=== PATIENT | female | born 1970 | race African-American/Black ===

== ENCOUNTER 2019-02-27 08:51 | Day surgery (SDC) | payer OTHER ==
[2019-02-27] VITALS (9 sets, daily range): BP systolic 130–170; BP diastolic 77–113
[~2019-02-27] VITALS: Ht 149.9 cm; Wt 69.9 kg
[~2019-02-27 08:51] MED LIST: LR 1000ml 1,000 ML IVLG SCH
--- NOTE | 2019-02-27 09:57 | Short Stay Surgery H&P ---
History of Present Illness History of Present Illness Chief Complaint Abdominal pains and GERDs. HPI Geneva Kang is a 48 year old female who was admitted on for GERD/ abdominal pain Patient History Allergies: Coded Allergies: No Known Allergies (Unverified , 02/26/19) PAST MEDICAL HISTORY: (1) Hyperlipidemia (2) Hypertension (3) Status post delivery (4) Status post cholecystectomy Review of Systems Cardiovascular: Reports: no symptoms, hypertension Respiratory: Reports: no symptoms Skeletal: Reports: trauma Gastrointestinal: Reports: gastro esophageal reflux disease Genitourinary: Reports: no symptoms Neurologic: Reports: no symptoms Endocrine: Reports: no symptoms Hematologic: Reports: no symptoms Physical Exam Skin: normal HENT: normal Heart: normal Lungs: normal Abdomen: abnormal Extremities: normal Genitourinary: normal Plan Plan of Care Upper GI. endoscopy and biopsy Preop Interventions None. Summary of Findings See the reports Attestation Are the patient's medical conditions optimized for surgery? Attestation Response: yes Lynn Vernon MD February 27, 2019 09:57
--- NOTE | 2019-02-27 09:59 | Pre-Procedure Note/Attestation ---
Pre-Procedure Note/Attestation Complete Prior to Procedure Planned Procedure: left Procedure Narrative: Examination of the upper GI.tract with biopsy. Indications for Procedure Pre-Operative Diagnosis: R/O gastritis/peptic ulcer Attestation I attest that I discussed the nature of the procedure; its benefits; risks and complications; and alternatives (and the risks and benefits of such alternatives ), prior to the procedure, with the patient (or the patient's legal patient care representative). I attest that, if there was a reasonable possibility of needing a blood transfusion, the patient (or the patient's legal patient care representative) was given the [facility] standardized written summary, pursuant to the [place] Blood Safety Act ([place] Health and Safety Code # 1645, as amended). I attest that I re-evaluated the patient just prior to the surgery and that there has been no change in the patient's H&P, except as documented below: Lynn Vernon MD February 27, 2019 09:59
[2019-02-27] MEDS ORDERED: Propofol 200mg/20ml IV ONE (10:30)
[2019-02-27] MEDS ORDERED: ZANTAC150 MG ORAL (10:40)
[2019-02-27] MEDS ORDERED: BP MED PO (10:40)
[2019-02-27] MEDS ORDERED: PAMELOR10 MG ORAL (10:40)
--- NOTE | 2019-02-27 10:49 | Anethesia Preoperative Eval ---
Anesthesia Pre-op PMH/ROS General Date of Evaluation: February 27, 2019 Time of Evaluation: 10:00 ASA Score: ASA 2 Mallampati Score Class I : Soft palate, uvula, fauces, pillars visible Class II: Soft palate, uvula, fauces visible Class III: Soft palate, base of uvula visible Class IV: Only hard plate visible Mallampati Classification: Class II Allergies: Coded Allergies: CEPHALEXIN (Verified Allergy, Severe, SWELLING, RASH , 02/27/19) LATEX (Verified Allergy, Severe, RASH , 02/27/19) PENICILLINS (Verified Adverse Reaction, Severe, 02/27/19) YEAST INFECTION Patient NPO?: Yes Anesthesia Pre-op Phys. Exam Physician Exam Last Vital Signs Date Time Temp Pulse Resp B/P (MAP) Pulse Ox O2 Delivery O2 Flow Rate FiO2 02/27/19 10:37 Room Air 02/27/19 10:24 97.4 82 18 153/97 98 Airway Exam Mallampati Score: Class II Anesthesia Pre-op A/P Labs Urine Test Test 02/27/19 10:30 Urine HCG, Qualitative Pending Alvaro Christy MD February 27, 2019 10:49
--- NOTE | 2019-02-27 10:52 | Endoscopy Procedure Note ---
Endoscopy Procedure Note General Indication for Procedure: Abdominal pains/GERDs Procedures Performed: EGD - Mild gastritis of the antrum (antritis), edema of pyloric channel at 11 o'clock, biopsies obtained from pyloric channel, antrum and gastric body. Specimen: yes Pt Tolerated Procedure Well: Yes Estimated Blood Loss: none Anesthesia Anesthesiologist: Dr. Christy Anesthesia: moderate sedation Medications Medication Given: see anesthesia record Inserted Devices Implant(s) used?: No Quality Quality of Bowel Preparation: Excellent Was there any complications?: No GI Core Measures 50 yrs or older w/o bx or poly: Not Applicable 10yrs. F/U recommended: Not Applicable If not recommended, why?: Med reason:<3 yrs.: System Reason:<3 yrs.: Lynn Vernon MD February 27, 2019 10:52
--- NOTE | 2019-02-27 10:54 | Discharge Instructions ---
Discharge Instructions Discharge Instructions Follow up with: Call for appointment to see the doctor if authorized. For Congestive Heart Failure Reminder Report to your physician any weight gain of 5 pounds or more in one week. Lynn Vernon MD February 27, 2019 10:54
--- NOTE | 2019-02-27 10:56 | Immediate Post-Op Evaluation ---
Immediate Post-Op Evalulation Immediate Post-Op Evalulation Procedure: egd Date of Evaluation: February 27, 2019 Time of Evaluation: 10:56 Nausea: No Vomiting: No Alvaro Christy MD February 27, 2019 10:56
--- NOTE | 2019-02-27 13:50 | 48 Hour Post Anesthesia Eval ---
Post Anesthesia Evaluation Procedure: egd Date of Evaluation: February 27, 2019 Time of Evaluation: 13:50 Nausea: No Vomiting: No Alvaro Christy MD February 27, 2019 13:50
--- NOTE | 2019-02-27 17:45 | Pre-op HX & Phy Repo 2 SIG ---
DATE OF ADMISSION: 02/27/2019 HISTORY OF PRESENT ILLNESS: This patient is being seen before undergoing the procedure of upper GI endoscopy, which is required for further evaluation for the patient to receive clearance. The patient is a 48-year-old female who is being seen prior to undergoing the procedure of upper GI endoscopy as has been recommended by the examining Dr. Turner recently. The applicant reports to me that she has been suffering from the symptoms of upper GI tract mostly presenting with epigastric pain along with symptoms of heartburn consistent with gastroesophageal acid reflux. 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 As such, she also had injuries over the disc area, neck pain, etc. She was subsequently started on nonsteroidal anti-inflammatory agents and strong analgesics as she also developed anxiety and stress and headaches and symptoms of acid reflux. It was diagnosed that she also had herniated disc of the neck. Currently, the patient is complaining of having discomfort over the upper part of the abdomen along with symptoms of heartburn, though she has been prescribed some medications in this regard including PPIs and antacids that she has been taking. Also, she takes mostly Zantac medication at this point. She denies having any nausea, vomiting, hematemesis, melena, or hematochezia. As I mentioned, she has been treated with ibuprofen and similar compounds for a long period of time as she does have to take at this point as well to control her bodily pain that related to work injury. PAST MEDICAL HISTORY: Basically, she has had history of hypertension and hyperlipidemia. SURGERIES: The patient has had C-sections, cholecystectomy, and ganglion cyst removal. MEDICATIONS: Ibuprofen, Zantac, and . She also takes some medications for high blood pressure, the name of which she is not recalling at this point. ALLERGIES: She is allergic to medication, but she does not recall. CHILDHOOD DISEASES: As usual. HABITS: She takes a spirit 3 to 4 times per week, but she does not smoke cigarettes. REVIEW OF SYSTEMS: Basically history of present illness. She denies chest pain, shortness of breath, cough, or major neurological problems. In particular the problem currently is basically headaches and reflux disease as I mentioned. PHYSICAL EXAMINATION: GENERAL: Reveals awake, alert, and well-oriented female, does not seem to be in any acute distress. VITAL SIGNS: Blood pressure 153/97, temperature 97.4, pulse rate 82, and respirations 18 per minute. HEENT: Normocephalic. Pupils are equal in size and reacting to light and accommodation. No visible jaundice. Buccal cavity, tongue midline, well hydrated. No ulcers. NECK: Supple. No JVD, thyromegaly, or adenopathy. CHEST: Clear to auscultation and percussion. No rales or rhonchi. HEART: S1, S2 normal. Regular rhythm abdomen. ABDOMEN: Soft. Normal bowel sounds. There is no organomegaly. No masses. There is tenderness over the upper part of the abdomen. EXTREMITIES: Within normal limits. CENTRAL NERVOUS SYSTEM: Within normal limits. PRELIMINARY PREOPERATIVE DIAGNOSIS: 1. Abdominal pain consistent with chronic gastroesophageal acid reflux aggravated by side effects of medications such as NSAID, rule out underlying peptic ulcer disease, gastritis, esophagitis, duodenal ulcer, etc. 2. Hypertension and hyperlipidemia. RECOMMENDATION: The applicant seems to be quite stable at this time to undergo the procedure for upper GI endoscopy for which she has been scheduled. She understands the risks and benefits and will sign the consent. Said Kevin Vernon DR: ROLLY JOB#: [id number] CC:
--- NOTE | 2019-02-27 18:15 | Operative Note - Dictated ---
DATE OF OPERATION: 02/27/2019 SURGEON: Lynn Vernon M.D. PROCEDURE: Esophagogastroduodenoscopy with biopsy. PREOPERATIVE DIAGNOSES: 1. Abdominal pain. 2. History of chronic gastroesophageal acid reflux. 3. Rule out NSAID-induced gastropathy. 4. Peptic ulcer disease. 5. Esophagitis. 6. Gastritis. POSTOPERATIVE DIAGNOSIS: 1. Evidence of mild gastritis of the antrum, consistent with antritis. 2. Edema of the pyloric channel. Biopsies were taken from the pyloric channel, antrum, and gastric body. MEDICATION USED: Per Dr. Christy, anesthesiologist. INSTRUMENT: GIF Olympus upper GI video endoscope. DESCRIPTION OF PROCEDURE: The patient after arriving endoscopy unit, was told about risks and benefits of the procedure, which she accepted and signed informed consent. At this time, she was put on the left lateral decubitus position. After adequate IV sedation, the scope was gently passed through the cricopharyngeal area, was lodged into the upper esophagus and gradually advanced towards gastroesophageal junction. The entire length of esophagus looked normal. GE junction also looked normal without any evidence of major hiatal hernia or Avila's. At this time, the scope was advanced into the stomach, gastric cavity was distended with insufflation of air. The examination from the fundus and the body and the antrum was started accordingly and there was evidence of minimal inflammatory process in the antrum and particularly, the pyloric channel revealed mild edema at 11 o'clock. At this point, biopsies from gastric body, antrum, and pyloric channel were obtained and subsequently the scope was passed through the pylorus. First and second portion of duodenum were found to be completely normal. The scope was then pulled back into the stomach. A retroflexion maneuver was applied. The area of the gastroesophageal junction was examined in a closer fashion, which revealed normal findings. Finally, the scope was pulled out and the procedure was terminated. The patient tolerated the procedure well and left the endoscopy room in a good condition. Lynn Vernon M.D. DR: ALONDRA JOB#: [id number] CC:
== END 2019-02-27 12:10 | disposition home or self-care (01) ==
LOC: GAS 08:51
DX: R10.9 Unspecified abdominal pain (principal); K21.9 Gastro-esophageal reflux disease without esophagitis; K29.50 Unspecified chronic gastritis without bleeding; K27.9 Peptic ulcer, site unspecified, unspecified as acute or chronic, without hemorrhage or perforation; K20.9 Esophagitis, unspecified; I10 Essential (primary) hypertension; E78.5 Hyperlipidemia, unspecified; Z90.49 Acquired absence of other specified parts of digestive tract; Z79.899 Other long term (current) drug therapy; Z88.0 Allergy status to penicillin; Z91.040 Latex allergy status
CPT/HCPCS: 43239; 81025; J0360; J2704; 94003; 94150